=== PATIENT | female | born 1950 | race Caucasian/White ===

== ENCOUNTER 2025-07-20 07:59 | Day surgery (SDC) | payer MEDICARE ==
[2025-07-20] MEDS ORDERED: Propofol 500 MG/50 ML SDV ONE (10:00)
[2025-07-20 10:21] VITALS: BP 181/81; PULSE 60
== END 2025-07-20 11:51 | disposition home or self-care (01) ==
LOC: LB.SDS 07:59
PROVIDERS: ATTEND Surgery
DX: Z12.11 Encounter for screening for malignant neoplasm of colon (principal); D12.5 Benign neoplasm of sigmoid colon; K57.30 Diverticulosis of large intestine without perforation or abscess without bleeding; I10 Essential (primary) hypertension; Z88.2 Allergy status to sulfonamides; Z79.899 Other long term (current) drug therapy
CPT/HCPCS: 45385; J2704; J7030